=== PATIENT | female | born 1995 | race Caucasian/White ===

== ENCOUNTER 2018-01-29 18:19 | Emergency (ER) | payer OTHER ==
[~2018-01-29] VITALS: Ht 165.1 cm; Wt 70.4 kg
[2018-01-29 18:21] VITALS: BP 140/70; PULSE 84; RESP 16; TEMP 99.2; O2SAT 98
--- NOTE | 2018-01-29 18:51 | PD ---
HPI Chief Complaint: Complaint Time Seen by Provider: 18:41 Travel History International Travel<30 days: No Contact w/Intl Traveler<30days: No Traveled to known affect area: No History of Present Illness HPI 22-year-old female here for evaluation of fatigue, left flank pain, dark urine, cervical lymphadenopathy. The patient was diagnosed with bronchitis last week and was given a Z-Ricki. Over the last couple of days she has had a left flank pain which she describes as cramping. Initially she thought this was menstrual cramping, however the symptoms persisted. Pain is worse with movements and inspiration. She has had subjective fevers and chills. She reports having difficulty swallowing and had a sore throat last week, however states that the sore throat has resolved. She has had cervical lymphadenopathy, left greater than right for the last couple of days. Cough is productive of clear sputum. No hemoptysis. She is on control. She denies any abnormal vaginal discharge or bleeding. No history of DVT or PE. PFSH Past Medical History ?: Not LMP: december 31- Social History Tobacco Use: No Allergies-Medications (Allergen,Severity, Reaction): Coded Allergies: Penicillins (Verified Allergy, Intermediate, Rash, 01/29/18) Reported Meds & Prescriptions Reported Meds & Active Scripts Active Active Prescriptions or Reported Medications Unobtainable Review of Systems Except as stated in HPI: all other systems reviewed are Neg Physical Exam Narrative GENERAL: Well-developed, well-nourished, comfortable, no apparent distress. SKIN: Focused skin assessment warm/dry. No rash. HEAD: Atraumatic. Normocephalic. EYES: Pupils equal and round. No scleral icterus. No injection or drainage. ENT: No nasal bleeding or discharge. Mucous membranes pink and moist. Pharynx without erythema or edema. Uvula midline. Normal phonation. No drooling or stridor. NECK: Trachea midline. No JVD. Cervical lymphadenopathy with several mobile lymph nodes. CARDIOVASCULAR: Regular rate and rhythm. No murmur appreciated. RESPIRATORY: No accessory muscle use. Clear to auscultation. Breath sounds equal bilaterally. GASTROINTESTINAL: Abdomen soft, non-tender, nondistended. MUSCULOSKELETAL: No obvious deformities. No clubbing. No cyanosis. No edema. Mild left CVA tenderness. No right CVA tenderness. No midline vertebral step- off or tenderness. NEUROLOGICAL: Awake and alert. No obvious cranial nerve deficits. Motor grossly within normal limits. Normal speech. PSYCHIATRIC: Appropriate mood and affect; insight and judgment normal. Data Data Last Documented VS Vital Signs Date Time Temp Pulse Resp B/P (MAP) Pulse Ox O2 Delivery O2 Flow Rate FiO2 01/29/18 19:18 16 98 Room Air 01/29/18 18:21 99.2 84 140/70 (93) Orders Orders Electrocardiogram (01/29/18 18:46) Ckmb (Isoenzyme) Profile (01/29/18 18:46) Complete Blood Count With Diff (01/29/18 18:46) Comprehensive Metabolic Panel (01/29/18 18:46) D-Dimer (01/29/18 18:46) Prothrombin Time / Inr (Pt) (01/29/18 18:46) Act Partial Throm Time (Ptt) (01/29/18 18:46) Troponin I (01/29/18 18:46) Lipase (01/29/18 18:46) Chest, Single Ap (01/29/18 18:46) Ecg Monitoring (01/29/18 18:46) Iv Access Insert/Monitor (01/29/18 18:46) Oximetry (01/29/18 18:46) Sodium Chloride 0.9% Flush (Ns Flush) (01/29/18 19:00) Ed Urine Pregnancytest Poc (01/29/18 18:46) Sodium Chlor 0.9% 1000 Ml Inj (Ns 1000 M (01/29/18 19:00) Monoscreen (01/29/18 18:46) Group A Rapid Strep Screen (01/29/18 18:46) Influenzae A/B Antigen (01/29/18 18:48) Urinalysis - C+S If Indicated (01/29/18 19:32) Strep Culture (Group A) (01/29/18 19:06) Ct Abd/Pel W Iv Contrast(Rout) (01/29/18 ) Iohexol 350 Inj (Omnipaque 350 Inj) (01/29/18 20:34) Ketorolac Inj (Toradol Inj) (01/29/18 21:15) Ed Discharge Order (01/29/18 21:05) Labs Laboratory Tests Test 01/29/18 19:06 01/29/18 19:43 White Blood Count 8.4 TH/MM3 Red Blood Count 4.36 MIL/MM3 Hemoglobin 13.5 GM/DL Hematocrit 39.5 % Mean Corpuscular Volume 90.7 FL Mean Corpuscular Hemoglobin 31.0 PG Mean Corpuscular Hemoglobin Concent 34.1 % Red Cell Distribution Width 12.4 % Platelet Count 193 TH/MM3 Mean Platelet Volume 7.8 FL Neutrophils (%) (Auto) 23.8 % Lymphocytes (%) (Auto) 63.9 % Monocytes (%) (Auto) 11.1 % Eosinophils (%) (Auto) 0.9 % Basophils (%) (Auto) 0.3 % Neutrophils # (Auto) 2.0 TH/MM3 Lymphocytes # (Auto) 5.4 TH/MM3 Monocytes # (Auto) 0.9 TH/MM3 Eosinophils # (Auto) 0.1 TH/MM3 Basophils # (Auto) 0.0 TH/MM3 CBC Comment AUTO DIFF Differential Total Cells Counted 100 Neutrophils % (Manual) 33 % Band Neutrophils % 1 % Lymphocytes % 38 % Monocytes % 1 % Eosinophils % 1 % Neutrophils # (Manual) 2.9 TH/MM3 Differential Comment FINAL DIFF MANUAL Atypical Lymphocytes 26 % Platelet Estimate NORMAL Platelet Morphology Comment NORMAL Red Cell Morphology Comment NORMAL Prothrombin Time 11.3 SEC Prothromb Time International Ratio 1.1 RATIO Activated Partial Thromboplast Time 28.3 SEC D-Dimer Quantitative (PE/DVT) 0.36 MG/L FEU Blood Urea Nitrogen 14 MG/DL Creatinine 0.88 MG/DL Random Glucose 87 MG/DL Total Protein 7.9 GM/DL Albumin 4.1 GM/DL Calcium Level 9.3 MG/DL Alkaline Phosphatase 117 U/L Aspartate Amino Transf (AST/SGOT) 75 U/L Alanine Aminotransferase (ALT/SGPT) 125 U/L Total Bilirubin 1.1 MG/DL Sodium Level 141 MEQ/L Potassium Level 3.7 MEQ/L Chloride Level 106 MEQ/L Carbon Dioxide Level 28.3 MEQ/L Anion Gap 7 MEQ/L Estimat Glomerular Filtration Rate 82 ML/MIN Total Creatine Kinase 50 U/L Troponin I LESS THAN 0.02 NG/ML Lipase 166 U/L Monoscreen POS Urine Color ALENA Urine Turbidity CLEAR Urine pH 6.0 Urine Specific [place] GREATER/EQUAL 1.030 Urine Protein TRACE mg/dL Urine Glucose (UA) NEG mg/dL Urine Ketones TRACE mg/dL Urine Occult Blood NEG Urine Nitrite NEG Urine Bilirubin NEG Urine Urobilinogen 2.0 MG/DL Urine Leukocyte Esterase NEG Urine RBC 0-2 /hpf Urine WBC 0-2 /hpf Urine Squamous Epithelial Cells 6-8 /hpf Urine Calcium Oxalate Crystals FEW /hpf Urine Bacteria OCC /hpf Microscopic Urinalysis Comment CULT NOT INDICATED MDM Medical Decision Making Medical Screen Exam Complete: Yes Emergency Medical Condition: Yes Interpretation(s) EKG: Sinus, rate 77, normal axis, normal intervals, no acute ischemic abnormality. Differential Diagnosis Pyelonephritis, nephrolithiasis, ureterolithiasis, UTI, PE, pneumonia, mono, viral illness, lymphadenopathy Narrative Course Initial vital signs show heart rate 84, blood pressure 140/70, pulse ox 90% on room air, oral temperature 99.2F. CBC: WBC 8.4, hemoglobin 13.5, hematocrit 39.5, platelets 195, lymphocytes 64%, monocytes 11%, 26% atypical lymphocytes. CMP is remarkable for AST 75, ALT 125, otherwise unremarkable. Lipase is 166. UA shows trace ketones, 6-8 epithelial cells, few calcium oxalate crystals, occasional bacteria, negative nitrites, negative leukocyte esterase, not suggestive of UTI. D-dimer is negative at 0.36. Cardiac enzymes are negative. Group A strep is negative. Influenza is negative. [place] screen is positive. Chest x-ray shows no acute disease. CT abdomen pelvis: CONCLUSION: No acute CT findings in the abdomen or pelvis. Patient was made aware of all findings. She is resting comfortably. Lab abnormalities of slightly elevated LFTs as well as lymphocytosis is most likely attributed to positive mono screen. She is stable for discharge home with outpatient follow-up with her primary care physician this week. She was advised to stay hydrated with plenty of fluids. She was informed on when to return to the emergency department. She verbalizes understanding and agreement with plan. Diagnosis Primary Impression: Mononucleosis Referrals: Primary Care Physician 3 days Additional Instructions: Follow-up with your primary care physician this week. Stay hydrated with plenty of fluids. Return to the emergency department for worsening symptoms or any other concerns. Scripts Unable to Obtain Active Prescriptions or Reported Meds Disposition: 01 DISCHARGE HOME Condition: Stable Norm Brown MD Jan 29, 2018 18:51
[2018-01-29] MEDS ORDERED: SODIUM CHLORIDE 0.9% FLUSH 10 ML FLUSH IVF PRN (19:00)
[2018-01-29] MEDS ORDERED: SODIUM CHLOR 0.9% 1000 ML INJ 1,000 ML IV ONE (19:00)
[2018-01-29 19:14] LABS: BASOPHIL % 0.3 % (0.0-2.0); EOSINOPHIL # 0.1 TH/MM3 (0-0.4); EOSINOPHIL % 0.9 % (0.0-4.0); HEMATOCRIT 39.5 % (35.0-46.0); HEMOGLOBIN 13.5 GM/DL (11.6-15.3); LYMPH % 63.9 % (9.0-44.0); LYMPHOCYTE # 5.4 TH/MM3 (1.0-4.8); MEAN CELL VOLUME 90.7 FL (80.0-100.0); MEAN CORPUSCULAR HGB CONC 34.1 % (32.0-36.0); MEAN PLATELET VOLUME 7.8 FL (7.0-11.0); MONO % 11.1 % (0.0-8.0); MONOCYTE # 0.9 TH/MM3 (0-0.9); NEUT % 23.8 % (16.0-70.0); PLATELET COUNT 193 TH/MM3 (150-450); RED BLOOD COUNT 4.36 MIL/MM3 (4.00-5.30); RED CELL DISTRIBUTION WIDTH 12.4 % (11.6-17.2); WHITE BLOOD COUNT 8.4 TH/MM3 (4.0-11.0)
[2018-01-29 19:18] VITALS: RESP 16; O2SAT 98
--- NOTE | 2018-01-29 19:22 | RADRPT ---
EXAM DATE/TIME: 01/29/2018 19:05 [facility] COMPARISON: No previous studies available for comparison. INDICATIONS : Chest and abdominal pain. MEDICAL HISTORY : None. SURGICAL HISTORY : None. ENCOUNTER: Initial ACUITY: 1 day PAIN SCORE: 4/10 LOCATION: Bilateral chest FINDINGS: A single view of the chest demonstrates the lungs to be symmetrically aerated without evidence of mas s, infiltrate or effusion. The cardiomediastinal contours are unremarkable. Osseous structures are intact. CONCLUSION: No acute disease. Richie Engle MD on January 29, 2018 at 19:19 Board Certified Radiologist. This report was verified electronically.
[2018-01-29 19:25] LABS: CHLORIDE 106 MEQ/L (98-107); SODIUM (NA) 141 MEQ/L (136-145)
[2018-01-29 19:29] LABS: ALBUMIN 4.1 GM/DL (3.4-5.0); BICARBONATE 28.3 MEQ/L (21.0-32.0); BLOOD UREA NITROGEN 14 MG/DL (7-18); CALCIUM 9.3 MG/DL (8.5-10.1); GLUCOSE,RANDOM 87 MG/DL (74-106)
[2018-01-29 19:31] LABS: INTERNATIONAL NORMALIZED RATIO 1.1 RATIO; PROTHROMBIN TIME - PATIENT 11.3 SEC (9.8-11.6)
[2018-01-29 19:32] LABS: ALT (GPT) 125 U/L (9-42); AST (GOT) 75 U/L (16-38); CREATININE 0.88 MG/DL (0.50-1.00); GLOMERULAR FILTRATION RATE 82 ML/MIN (>89)
[2018-01-29 19:34] LABS: TOTAL BILIRUBIN ADULT 1.1 MG/DL (0.2-1.0); TOTAL PROTEIN 7.9 GM/DL (6.4-8.2)
[2018-01-29 19:35] LABS: ALKALINE PHOSPHATASE 117 U/L (45-117)
[2018-01-29 19:37] LABS: TROPONIN I LESS THAN 0.02 NG/ML (0.02-0.05)
[2018-01-29 19:41] LABS: ATYPICAL LYMPHOCYTES 26 % (0-0); BANDS 1 % (0-6); LYMPHOCYTES 38 % (9-44); MONOCYTES 1 % (0-8); NEUTROPHIL # MANUAL DIFF 2.9 TH/MM3 (1.8-7.7); POLYS (SEG NEUTROPHILS) 33 % (16-70)
[2018-01-29 19:43] LABS: D-DIMER 0.36 MG/L FEU (0.00-0.50)
[2018-01-29 19:47] LABS: BLOOD, URINE NEG (NEG); GLUCOSE,URINE NEG (NEG); KETONE, URINE TRACE mg/dL (NEG); NITRITE,URINE NEG (NEG); URINE LEUKOCYTE ESTERASE NEG (NEG)
[2018-01-29 19:53] LABS: BILIRUBIN, URINE NEG (NEG)
[2018-01-29 19:56] LABS: BACTERIA, URINE OCC /hpf; CALCIUM OXALATE CRYSTALS,URINE FEW /hpf; RBC, URINE 0-2 /hpf (0-3); URINE COLOR AMBER (YELLW/STRAW); WBC, URINE 0-2 /hpf (0-5)
[2018-01-29 20:23] LABS: MONOSCREEN POS (NEG)
[2018-01-29] MEDS ORDERED: IOHEXOL 350 MG/ML 10 ML VIAL (for RAD DIAG) IVCONTRAST ONE (20:34)
--- NOTE | 2018-01-29 20:51 | RADRPT ---
EXAM DATE/TIME: 01/29/2018 20:28 [facility] COMPARISON: No previous studies available for comparison. INDICATIONS : Left sided abdomen pain with fatigue. IV CONTRAST: 100 cc Omnipaque 350 (iohexol) IV ORAL CONTRAST: No oral contrast ingested. RADIATION DOSE: 8.65 CTDIvol (mGy) MEDICAL HISTORY : None SURGICAL HISTORY : None. ENCOUNTER: Initial ACUITY: 1 day PAIN SCALE: 5/10 LOCATION: Left abdomen TECHNIQUE: Volumetric scanning of the abdomen and pelvis was performed. Using automated exposure control and ad justment of the mA and/or kV according to patient size, radiation dose was kept as low as reasonably achievable to obtain optimal diagnostic quality images. DICOM format image data is available electro nically for review and comparison. FINDINGS: LOWER LUNGS: The visualized lower lungs are clear. LIVER: Homogeneous density without lesion. There is no dilation of the biliary tree. No calcified gallston es. SPLEEN: Normal size without lesion. PANCREAS: Within normal limits. KIDNEYS: Normal in size and shape. There is no mass, stone or hydronephrosis. ADRENAL GLANDS: Within normal limits. VASCULAR: There is no aortic aneurysm. BOWEL/MESENTERY: The stomach, small bowel, and colon demonstrate no acute abnormality. There is no free intraperitone al air or fluid. ABDOMINAL WALL: Within normal limits. RETROPERITONEUM: There is no lymphadenopathy. BLADDER: No wall thickening or mass. REPRODUCTIVE: Within normal limits. INGUINAL: There is no lymphadenopathy or hernia. MUSCULOSKELETAL: Within normal limits for patient age. CONCLUSION: No acute CT findings in the abdomen or pelvis. Richie Engle MD on January 29, 2018 at 20:44 Board Certified Radiologist. This report was verified electronically.
[2018-01-29] MEDS ORDERED: KETOROLAC TROMETHAMINE 30 MG/ML (IVP) VIAL IV PUSH ONE (21:15)
--- NOTE | 2018-01-30 13:24 | EKG ---
Date Performed: 01/29/2018 Time Performed: 19:37:09 PTAGE: 22 years EKG: Sinus rhythm POSSIBLE RIGHT VENTRICULAR CONDUCTION DELAY BORDERLINE ECG NO PREVIOUS TRACING DOCTOR: Tim Henriquez Interpretating Date/Time 01/30/2018 13:23:30
== END 2018-01-29 21:22 | disposition home or self-care (01) ==
LOC: PHED 18:19
DX: B27.90 Infectious mononucleosis, unspecified without complication (principal); R79.89 Other specified abnormal findings of blood chemistry; D72.820 Lymphocytosis (symptomatic); Z88.0 Allergy status to penicillin
CPT/HCPCS: 71045; 74177; 80053; 81001; 82550; 83690; 84484; 84703; 85007; 85027; 85379; 85610; 85730; 86308; 87081; 87804; 87880; 93005; 96361; 96374; 99285; J1885; J7030; Q9967